=== PATIENT | male | born 1960 | race Caucasian/White ===

== ENCOUNTER 2017-04-02 20:55 | Emergency (ER) | payer OTHER ==
[~2017-04-02] VITALS: Ht 170.2 cm; Wt 117.0 kg
[2017-04-02 21:07] VITALS: BP 137/88
[2017-04-02] MEDS ORDERED: SODIUM CHLORIDE 0.9% 1,000 ML IV ONE (22:11)
[2017-04-02] MEDS ORDERED: ONDANSETRON 2MG/ML, 2ML IVPush ONE (22:30)
[2017-04-02] MEDS ORDERED: DIAZEPAM 5 MG/ML, 2ML IVPush PRN (22:30)
[2017-04-02] MEDS ORDERED: SODIUM CHLORIDE FLUSH 10ML SYR IVF ONE (22:30)
[2017-04-02] MEDS ORDERED: MORPHINE SULFATE 4 MG/ML, 1ML IVPush PRN (22:30)
[2017-04-02] MEDS ORDERED: DIAZEPAM 5 MG/ML, 2ML IVPush ONE (22:30)
[2017-04-02 22:34] LABS: BASOPHILS # (AUTO) 0.03 x10^3/uL (0-0.1); BASOPHILS % (AUTO) 0 % (0-1); EOSINOPHILS # (AUTO) 0.08 x10^3/uL (0-0.4); EOSINOPHILS % (AUTO) 1 % (1-7); LYMPHOCYTES # (AUTO) 2.59 x10^3/uL (1-3.4); LYMPHOCYTES % (AUTO) 29 % (22-44); MD NO; MEAN CORPUSCULAR HEMOGLOBIN 30.6 pg (27.5-34.5); MEAN CORPUSCULAR VOLUME 90.1 fL (81-97); MEAN PLATELET VOLUME 9.4 fL (7.4-10.4); MONOCYTES # (AUTO) 1.05 x10^3/uL (0.2-0.8); MONOCYTES % (AUTO) 12 % (2-9); NEUTROPHILS # (AUTO) 5.16 x10^3/uL (1.8-6.8); NEUTROPHILS % (AUTO) 58 % (42-75); PLATELET COUNT 239 x10^3/uL (130-400); RED CELL DISTRIBUTION WIDTH 13.8 % (9.4-14.8)
[2017-04-02 22:46] LABS: ALBUMIN 3.6 g/dL (3.4-5.0); ANION GAP 11 mmol/L (5-15); CALCIUM 8.4 mg/dL (8.5-10.1); CHLORIDE 107 mmol/L (98-107); CREATININE 1.24 mg/dL (0.7-1.3)
[2017-04-02] MEDS ORDERED: ONDANSETRON 2MG/ML, 2ML ONE (23:18)
[2017-04-02] MEDS ORDERED: MORPHINE SULFATE 4 MG/ML, 1ML ONE (23:18)
[2017-04-03] MEDS ORDERED: DULO20CA45 PO (00:12)
[2017-04-03] MEDS ORDERED: FINA5TAB4 PO (00:15)
[2017-04-03] MEDS ORDERED: BACL-19 PO (00:15)
[2017-04-03] MEDS ORDERED: METO25TA4 PO (00:15)
== END 2017-04-03 02:04 | disposition home or self-care (01) ==
LOC: ED 23:58
DX: M54.2 Cervicalgia (principal); G89.29 Other chronic pain; G80.9 Cerebral palsy, unspecified; I10 Essential (primary) hypertension; Z88.8 Allergy status to other drugs, medicaments and biological substances
CPT/HCPCS: 36415; 72141; 80048; 82040; 85025; 96361; 96374; 96375; 99285; J2405; J3360; J7030